=== PATIENT | male | born 1985 | race Caucasian/White ===

== ENCOUNTER 2024-04-09 10:16 | Emergency (ER) | payer MEDICAID ==
[~2024-04-09] VITALS: Ht 162.6 cm; Wt 68.0 kg
[2024-04-09 10:50] VITALS: O2SAT 100
[2024-04-09] MEDS: METOCLOPRAMIDE HCL 10MG TABLET PO ONE (14:17)
[2024-04-09] MEDS: KETOROLAC 15MG/ML VIAL IM ONE (14:17)
[2024-04-09 14:50] VITALS: BP 121/82; PULSE 52; RESP 12; TEMP 37.11408
== END 2024-04-09 14:55 | disposition home or self-care (01) ==
LOC: ER 10:30
DX: S06.0XAA Concussion with loss of consciousness status unknown, initial encounter (principal); S00.81XA Abrasion of other part of head, initial encounter; W19.XXXA Unspecified fall, initial encounter; X58.XXXA Exposure to other specified factors, initial encounter; Y93.89 Activity, other specified; Y92.89 Other specified places as the place of occurrence of the external cause; Y99.8 Other external cause status
CPT/HCPCS: 99285; 70450; 70486; 72125; 96372; J8597; J1885

== ENCOUNTER 2024-08-18 15:33 | Emergency (ER) | payer MEDICAID ==
[~2024-08-18] VITALS: Ht 162.6 cm; Wt 68.0 kg
[2024-08-18 15:40] VITALS: O2SAT 99
[2024-08-18 15:58] VITALS: TEMP 37; O2SAT 98
[2024-08-18 16:25] LABS: BASOPHILS % 0.8 % (0.0-2.0); EOSINOPHILS % 1.2 % (0.0-5.0); HEMOGLOBIN. 14.8 g/dL (14.0-18.0); MEAN CORPUSCULAR HEMOGLOBIN 30.4 pg (28.0-32.0); MEAN CORPUSCULAR HGB CONC 34.4 g/dL (31.0-37.0); MEAN CORPUSCULAR VOLUME 88.5 fL (80.0-94.0); MONOCYTES % 6.9 % (2.0-8.0); NEUTROPHILS % 64.1 % (40.0-76.0); PLATELET 255 x1000/uL (130-400); RED BLOOD CELL COUNT 4.85 mill/uL (4.7-6.1); RED CELL DISTRIBUTION WIDTH 13.2 % (11.6-14.6)
[2024-08-18 16:32] LABS: CHLORIDE 105 mEq/L (98-107); POTASSIUM 4.1 mEq/L (3.5-5.1); SODIUM 139 mEq/L (136-145)
[2024-08-18 16:33] LABS: CARBON DIOXIDE 26 mEq/L (21-32)
[2024-08-18 16:34] LABS: CALCIUM 9.8 mg/dL (8.7-10.4)
[2024-08-18 16:38] LABS: GLUCOSE 114 mg/dL (70-105); UREA NITROGEN BLOOD 19 mg/dL (9-23)
[2024-08-18 18:15] VITALS: BP 127/71; PULSE 68; RESP 18; TEMP 98.6
[2024-08-18] MEDS: ACETAMINOPHEN 500MG TABLET PO STA (18:15)
[2024-08-18] MEDS: IBUPROFEN 600MG TABLET PO STA (18:15)
== END 2024-08-18 21:15 | disposition left against medical advice (07) ==
LOC: ER 15:45
DX: S09.90XA Unspecified injury of head, initial encounter (principal); M79.662 Pain in left lower leg; X58.XXXA Exposure to other specified factors, initial encounter; Y93.89 Activity, other specified; Y92.89 Other specified places as the place of occurrence of the external cause
CPT/HCPCS: 36415; 73562; 80048; 85025; 99284

== ENCOUNTER 2024-08-22 11:53 | Emergency (ER) | payer MEDICAID ==
[~2024-08-22] VITALS: Ht 167.6 cm; Wt 78.0 kg
[2024-08-22 11:55] VITALS: O2SAT 99
[2024-08-22 12:03] VITALS: BP 125/76; PULSE 84; RESP 18; TEMP 37; O2SAT 99
[2024-08-22] MEDS: METOCLOPRAMIDE HCL 10MG/2ML VIAL IV ONE (12:44)
[2024-08-22] MEDS ORDERED: IBUP-2029 MT (13:49)
== END 2024-08-22 14:05 | disposition home or self-care (01) ==
LOC: ER 11:53
DX: S06.0XAA Concussion with loss of consciousness status unknown, initial encounter (principal); V89.2XXA Person injured in unspecified motor-vehicle accident, traffic, initial encounter; Y93.89 Activity, other specified; Y92.410 Unspecified street and highway as the place of occurrence of the external cause; Y99.8 Other external cause status
CPT/HCPCS: 99285; 96374; 70450; 71046; J2765